=== PATIENT | male | born 1970 | race Caucasian/White ===

== ENCOUNTER 2017-10-09 04:55 | Emergency (ER) | payer MEDICAID ==
[~2017-10-09] VITALS: Ht 182.9 cm; Wt 84.4 kg
[~2017-10-09 04:55] MED LIST: HYDR-569 PO
[2017-10-09 05:00] VITALS: BP 144/96
[2017-10-09] MEDS ORDERED: acetaminophen 325mg tablet PO ONE (05:20)
[2017-10-09] MEDS ORDERED: TAM75C PO (05:23)
== END 2017-10-09 05:36 | disposition home or self-care (01) ==
LOC: ER 04:56
DX: J11.1 Influenza due to unidentified influenza virus with other respiratory manifestations (principal); G89.29 Other chronic pain; Z88.0 Allergy status to penicillin; Z88.5 Allergy status to narcotic agent; Z79.899 Other long term (current) drug therapy
CPT/HCPCS: 99283

== ENCOUNTER 2021-05-28 13:42 | Emergency (ER) | payer SELFPAY ==
[~2021-05-28] VITALS: Ht 180.3 cm; Wt 95.0 kg
[~2021-05-28 13:42] MED LIST changes: +HYDR-4383 PO; -HYDR-569 PO
[2021-05-28 14:05] LABS: BASOPHILS # (AUTO) 0.1 X10'3 (0-0.2); BASOPHILS % (AUTO) 0.6 % (0-1); EOSINOPHILS # (AUTO) 0.3 X10'3 (0-0.9); EOSINOPHILS % (AUTO) 3.3 % (0-6); HEMATOCRIT 45.8 % (42.0-52.0); HEMOGLOBIN 14.7 g/dl (14.0-17.9); LYMPHOCYTES % (AUTO) 20.5 % (21-51); MEAN CORPUSCULAR HEMOGLOBIN 26.3 PG (27.0-31.0); MEAN CORPUSCULAR HGB CONC 32.1 g/dL (33.0-36.5); MEAN CORPUSCULAR VOLUME 81.9 FL (78-98); MEAN PLATELET VOLUME 7.3 FL (7.4-10.4); MONOCYTES # (AUTO) 0.7 X10'3 (0-0.9); MONOCYTES % (AUTO) 7.1 % (2-12); NEUTROPHILS # (AUTO) 6.8 X10'3 (1.8-7.7); NEUTROPHILS % (AUTO) 68.5 % (42-75); PLATELET COUNT 335 X10'3 (140-440); RED CELL DISTRIBUTION WIDTH 14.6 % (11.5-14.5)
[2021-05-28 14:14] LABS: PARTIAL THROMBOPLASTIN TIME 26 SECONDS (22-32)
[2021-05-28 14:17] LABS: ALANINE AMINOTRANSFERASE 43 U/L (12-78); ALBUMIN 3.6 G/DL (3.4-5.0); ALKALINE PHOSPHATASE 108 IU/L (46-116); ANION GAP 10 (8-16); ASPARTATE AMINO TRANSFERASE 23 U/L (10-37); BILIRUBIN,TOTAL 0.2 MG/DL (0.1-1.0); BLOOD UREA NITROGEN 17 MG/DL (7-18); BUN/CREATININE RATIO 15.2 (5.4-32.0); CALCIUM 8.9 MG/DL (8.5-10.1); CHLORIDE 107 MMOL/L (99-107); CREATININE 1.12 MG/DL (0.60-1.10); GLUCOSE 100 MG/DL (70-104); POTASSIUM 4.1 MMOL/L (3.5-5.1); SODIUM 143 MMOL/L (135-145); TOTAL CARBON DIOXIDE 26.5 MMOL/L (24-32); TOTAL PROTEIN 7.2 G/DL (6.4-8.2); eGFR 69 ML/MIN
[2021-05-28 16:25] VITALS: BP 139/91
== END 2021-05-28 17:44 | disposition left against medical advice (07) ==
LOC: ER 13:43
DX: G45.9 Transient cerebral ischemic attack, unspecified (principal); R47.81 Slurred speech; R53.1 Weakness; R42 Dizziness and giddiness; F17.200 Nicotine dependence, unspecified, uncomplicated; F15.90 Other stimulant use, unspecified, uncomplicated; Z79.899 Other long term (current) drug therapy
CPT/HCPCS: 36415; 70450; 71045; 80053; 85025; 85610; 85730; 86885; 86900; 86901; 93005; 99285

== ENCOUNTER 2024-11-15 18:35 | Emergency (ER) | payer MEDICAID | END 2024-11-15 19:46 | disposition left against medical advice (07) | LOC: ER 18:35 | DX: N20.0 Calculus of kidney (principal); Z53.21 Procedure and treatment not carried out due to patient leaving prior to being seen by health care provider ==

== ENCOUNTER 2025-05-09 07:57 | Emergency (ER) | payer MEDICAID ==
[~2025-05-09] VITALS: Ht 180.3 cm; Wt 90.9 kg
--- NOTE | 2025-05-09 08:09 | Physician Documentation ---
History of Present Illness General Chief Complaint: Back Pain Stated Complaint: ALOC Time Seen by MD: 08:07 Primary Medical Doctor: none History of Present Illness Initial Comments The patient is a 54-year-old male presents to the to room with the acute right- sided abdominal pain x1 hour. Patient states he has had four episodes of similar pain since two months ago when he was diagnosed with a kidney stones. Patient states he was placed on Flomax of the that time. He states they kidney stone was described as the size of a [place] pill. Patient states he took a 5 mg oxycodone tablets 1 hour ago given to him by a friend. He states the pain is sharp right-sided and radiates down into his testicle. Patient denies any fevers chills . Patient complains of some nausea and denies any vomiting patient's symptoms are moderate and persistent he states that pain is 10/10. Medication Reconciliation Allergies: Coded Allergies: No Known Allergies (Unverified , 07/08/18) Scheduled Hydrocodone/Acetaminophen (Eland 5-325 Tablet), 1 TAB PO TID PRN Scheduled PRN Hydrocodone/Acetaminophen (Eland 5-325 Tablet), 1-2 TAB PO Q4HPRN PRN for pain Past Medical History Past Medical History: No Pertinent History, Chronic Pain Past Surgical History: noncontributory Alcohol Use: None Drug Use: methamphetamine Lives with: Family Lives In: Home Review of Systems All Other Systems at this time: Reviewed and Negative Physical Exam Physical Exam Vital Signs: Temperature: 97.9, Source: Oral, Heart Rate: 81, Respiratory Rate: 16, Pulse Oximetry: 99, Weight: 90.900 Oxygen Flow Rate: 0 Physical Exam VITALS: Reviewed and as above. GENERAL: Alert, mild distress secondary to pain HEENT: Normocephalic, atraumatic, PERRL, EOMI, dry mucosa, no erythema RESPIRATORY: Lungs clear, normal breath sounds, no respiratory distress. CHEST: No accessory muscle use, no retractions CV: Regular rate, rhythm, no edema, no murmur, No: JVD GI: Slight right lower abdominal tenderness, bowels sounds present, no rebound, guarding, or rigidity BACK: No CVA tenderness, or swelling MUSCULOSKELETAL: No deformities, no edema SKIN: Warm and dry, no rash NEURO: Oriented x4, No motor or sensory deficit PSYCH: Normal mood and affect, no agitation Progress Results/Orders Results/Orders Orders - OHLTHEA BLACKBURN MD Ct Abdomen Pelvis (05/09/25 08:27) Completed Orders - THEA HINOJOSA MD Ketorolac Trometh 15mg/Ml Vial (Toradol (05/09/25 08:05) Cbc/Diff (05/09/25 08:01) CMP (05/09/25 08:01) Normal Saline 1000ml (0.9% Sodium Chlori (05/09/25 08:05) Ct Abdomen Pelvis (05/09/25 08:27) Metoclopramide Inj (Reglan Inj) (05/09/25 08:55) Diphenhydramine Inj (Benadryl Inj.) (05/09/25 08:55) Morphine 4mg/Ml Inj. (Morphine Inj.) (05/09/25 08:55) Vital Signs 05/09/25 05/09/25 05/09/25 05/09/25 08:00 08:07 08:07 08:13 Temp 97.9 97.9 Pulse 81 79 Resp 16 13 10 B/P (MAP) 140/85 140/85 (103) Pulse Ox 99 97 O2 Flow Rate 0 0 05/09/25 05/09/25 05/09/25 05/09/25 08:28 08:54 09:21 10:33 Temp 97.9 Pulse 86 95 98 Resp 18 18 16 16 B/P (MAP) 113/61 (78) 112/66 (81) 104/60 Pulse Ox 98 94 99 O2 Flow Rate 0 0 Laboratory Tests Test 05/09/25 08:14 White Blood Count 13.6 H Red Blood Count 5.36 Hemoglobin 14.5 Hematocrit 43.0 Mean Corpuscular Volume 80.3 Mean Corpuscular Hemoglobin 27.1 Mean Corpuscular Hemoglobin Concent 33.7 Red Cell Distribution Width 14.3 Platelet Count 338 Mean Platelet Volume 7.3 L Neutrophils (%) (Auto) 77.9 H Lymphocytes (%) (Auto) 13.7 L Monocytes (%) (Auto) 6.0 Eosinophils (%) (Auto) 1.6 Basophils (%) (Auto) 0.8 Neutrophils # (Auto) 10.6 H Lymphocytes # (Auto) 1.9 Monocytes # (Auto) 0.8 Eosinophils # (Auto) 0.2 Basophils # (Auto) 0.1 CBC Comment Sodium Level 137 Potassium Level 3.8 Chloride Level 103 Carbon Dioxide Level 23.0 L Anion Gap 11 Blood Urea Nitrogen 21 H Creatinine 1.52 H Estimated GFR/1.73 m2 48 BUN/Creatinine Ratio 13.8 Glucose Level 126 H Calcium Level 8.5 Total Bilirubin 0.3 Aspartate Amino Transf (AST/SGOT) 30 Alanine Aminotransferase (ALT/SGPT) 50 Alkaline Phosphatase 88 Total Protein 7.1 Albumin 3.6 Globulin 3.5 Albumin/Globulin Ratio 1.0 L Chemistry Comments EKG/XRAY/CT/US/VASC/MRI CT : Impression Patient: ALEJANDRA LOZADA Medical Record: [id number] [facility] : 1970, Age: 54 Sex: Male Location: ER Patient Status: [facility] ER Service Date/Time: 05/09/25826 Ordering Physician: THEA HINOJOSA MD Exam: CT ABDOMEN PELVIS Exam: CT CT ABDOMEN PELVIS History: kidney stones COMPARISON: None Technique: Multidetector spiral CT of the abdomen and pelvis was performed from lung bases to pubic symphysis. Intravenous contrast was administered during this examination. Portal venous imaging was obtained. Axial, coronal and sagittal multiplanar reformats were performed by the technologist on a separate workstation. Radiation Dose : 1. Abdomen/Pelvis: CTDIvol 17.2 mGy, DLP 134 mGy*cm. Findings: Lung Bases: No acute or significant lung base finding. Normal heart size. No pleural or pericardial effusion. Liver: Hepatic steatosis. Hepatomegaly. Gallbladder and Biliary Tree: Unremarkable Spleen: Unremarkable Pancreas: The pancreas is normal in appearance without focal lesions or abnormal enhancement. Adrenal Glands: Unremarkable Kidneys: Left kidney is unremarkable. Moderate right hydroureteronephrosis. Bladder: 1.1 cm bladder calculus. Bowel: The stomach is grossly normal in appearance. Moderate colonic bowel wall thickening. The appendix is not visualized; however, no secondary findings of acute appendicitis identified. Ascites: Absent Lymphadenopathy: No mesenteric, retroperitoneal or periportal lymphadenopathy. Abdominal Wall and Mesentery: Unremarkable. Vasculature: The visualized abdominal aorta is normal in size and caliber. Abdominal and pelvic vessels demonstrate normal enhancement. Pelvic Organs: Unremarkable Musculoskeletal: No aggressive focal bony lesions, acute fractures or dislocation. IMPRESSION: Moderate right hydroureteronephrosis. 1.1 cm bladder calculus is present. This may represent a recently passed right renal stone. Hepatic steatosis. Hepatomegaly. Moderate diffuse colonic bowel wall thickening. This may be related to underdistention versus mild colitis. 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 The patient presented with renal colic patient has a 1 cm kidney stone that has advanced into the bladder. The patient is now comfortable the patient is nontoxic previous ho spitalizations were reviewed his CT imaging was reviewed by myself and I have also interpreted the CT is showing a bladder calculus I have also reviewed and agree with the interpretation of the radiologist. The patient has been advised to strain his urine and to follow up as an outpatient the patient will be discharged. Other etiologies considered for the patient's abdominal pain include infectious etiologies such as urinary tract infection and diverticulitis and appendicitis. These were not supported by the clinical evidence. Departure Disposition: 01 HOME / SELF CARE / HOMELESS Impression: Primary Impression: Kidney stones Discharge Instructions: Renal Colic, [id number] Additional Instructions: Follow up with the your healthcare providers soon as possible return for worsening of her symptoms and strain your urine Referrals: NO PRIMARY CARE PROVIDER (PCP) Signature Scribe Signature: No scribe Attestation: The note accurately reflects work and decisions made by me.Thea Hinojosa MD 05/09/25 10:17 THEA HINOJOSA MD May 09, 2025 08:09
[2025-05-09] MEDS: ketorolac trometh 15mg/ml vial 15 MG/ML ML IV ONE (08:13)
[2025-05-09] MEDS: normal saline 1000ML IV soln IVB ONE (08:17)
[2025-05-09 08:33] LABS: MEAN PLATELET VOLUME 7.3 FL (7.4-10.4); RED CELL DISTRIBUTION WIDTH 14.3 % (11.5-14.5)
--- NOTE | 2025-05-09 08:46 | RADIOLOGY REPORT ---
Exam: CT CT ABDOMEN PELVIS History: kidney stones COMPARISON: None Technique: Multidetector spiral CT of the abdomen and pelvis was performed from lung bases to pubic s ymphysis. Intravenous contrast was administered during this examination. Portal venous imaging was o btained. Axial, coronal and sagittal multiplanar reformats were performed by the technologist on a [employer] workstation. Radiation Dose : 1. Abdomen/Pelvis: CTDIvol 17.2 mGy, DLP 134 mGy*cm. Findings: Lung Bases: No acute or significant lung base finding. Normal heart size. No pleural or pericardial effusion. Liver: Hepatic steatosis. Hepatomegaly. Gallbladder and Biliary Tree: Unremarkable Spleen: Unremarkable Pancreas: The pancreas is normal in appearance without focal lesions or abnormal enhancement. Adrenal Glands: Unremarkable Kidneys: Left kidney is unremarkable. Moderate right hydroureteronephrosis. Bladder: 1.1 cm bladder calculus. Bowel: The stomach is grossly normal in appearance. Moderate colonic bowel wall thickening. The appen dina is not visualized; however, no secondary findings of acute appendicitis identified. Ascites: Absent Lymphadenopathy: No mesenteric, retroperitoneal or periportal lymphadenopathy. Abdominal Wall and Mesentery: Unremarkable. Vasculature: The visualized abdominal aorta is normal in size and caliber. Abdominal and pelvic vess els demonstrate normal enhancement. Pelvic Organs: Unremarkable Musculoskeletal: No aggressive focal bony lesions, acute fractures or dislocation. IMPRESSION: Moderate right hydroureteronephrosis. 1.1 cm bladder calculus is present. This may represent a recen tly passed right renal stone. Hepatic steatosis. Hepatomegaly. Moderate diffuse colonic bowel wall thickening. This may be related to underdistention versus mild c olitis.
[2025-05-09 08:51] LABS: CREATININE 1.52 MG/DL (0.60-1.10); TOTAL CARBON DIOXIDE 23.0 MMOL/L (24-32); eCRCL 59 ML/MIN; eGFR 48 ML/MIN
[2025-05-09 08:54] VITALS: TEMP 97.9
[2025-05-09] MEDS: metoclopramide 5 mg/ml inj IV ONE (09:53)
[2025-05-09] MEDS: morphine 4 MG/ML inj SYRINge IV ONE (09:53)
[2025-05-09 10:33] VITALS: BP 104/60; PULSE 98; RESP 16; O2SAT 99
== END 2025-05-09 10:32 | disposition home or self-care (01) ==
LOC: ER 07:57
DX: N20.0 Calculus of kidney (principal); F15.90 Other stimulant use, unspecified, uncomplicated; Z79.899 Other long term (current) drug therapy
CPT/HCPCS: 36415; 74176; 80053; 85025; 96361; 96374; 99285; J1885; J7030